=== PATIENT | female | born 1955 | race African-American/Black ===

== ENCOUNTER 2020-06-21 04:08 | Day surgery (SDC) | payer OTHER ==
[2020-06-18 12:05] VITALS: BMI 43.6
[2020-06-21] MEDS ORDERED: LIDOCAINE HCL 1% PRESERVATIVE FREE - 30ML VIAL IJ ONE (10:05)
[2020-06-21] MEDS ORDERED: DEXAMETHASONE 4 MG TABLET (FP) PO ONE (10:07)
[2020-06-21] MEDS ORDERED: IOHEXOL 180 MG/1 ML ML IJ ONE (10:08)
[2020-06-21] MEDS ORDERED: LIDOCAINE HCL/PF 1% SDV 5ML VIAL ONE (10:13)
[2020-06-21] MEDS ORDERED: DEXAMETHASONE SOD PHOSPHATE/PF 10 MG/ML SDV ONE (10:13)
[2020-06-21 11:00] VITALS: BP 123/69; PULSE 60; TEMP 97.9
== END 2020-06-21 10:55 | disposition home or self-care (01) ==
LOC: JASU-SURG 04:08
PROVIDERS: ATTEND Pain Medicine Pain Medicine
PROC: 3E0R33Z Introduction of Anti-inflammatory into Spinal Canal, Percutaneous Approach (ICD-10-PCS; 2020-06-21)
PROC: B01BYZZ Fluoroscopy of Spinal Cord using Other Contrast (ICD-10-PCS; 2020-06-21)
PROC: 3E0R3BZ Introduction of Anesthetic Agent into Spinal Canal, Percutaneous Approach (ICD-10-PCS; principal; 2020-06-21 09:00)
DX: M54.16 Radiculopathy, lumbar region (principal); M48.061 Spinal stenosis, lumbar region without neurogenic claudication
CPT/HCPCS: 76000-TC-FY

== ENCOUNTER 2020-07-26 04:16 | Day surgery (SDC) | payer OTHER ==
[2020-07-24 15:26] VITALS: BMI 42.0
[2020-07-26] MEDS ORDERED: LIDOCAINE HCL/PF 1% SDV 5ML VIAL ONE (07:18)
[2020-07-26] MEDS ORDERED: BUPIVACAINE HCL/PF 0.75% 10 ML VIAL ONE (07:18)
[2020-07-26 07:52] VITALS: TEMP 97.8
[2020-07-26 10:44] VITALS: BP 149/88; PULSE 77
== END 2020-07-26 10:15 | disposition home or self-care (01) ==
LOC: JASU-SURG 04:16
PROVIDERS: ATTEND Pain Medicine Pain Medicine
PROC: BR16ZZZ Fluoroscopy of Lumbar Facet Joint(s) (ICD-10-PCS; 2020-07-26)
PROC: 3E0T3BZ Introduction of Anesthetic Agent into Peripheral Nerves and Plexi, Percutaneous Approach (ICD-10-PCS; principal; 2020-07-26 08:36)
DX: M47.816 Spondylosis without myelopathy or radiculopathy, lumbar region (principal)
CPT/HCPCS: 76000-TC-FY